=== PATIENT | male | born 1995 | race Caucasian/White ===

== ENCOUNTER 2024-06-04 17:32 | Emergency (ER) | payer SELFPAY ==
[~2024-06-04] VITALS: Ht 177.8 cm; Wt 97.5 kg
[2024-06-04 17:33] VITALS: BP 143/75; PULSE 70; RESP 16; TEMP 98.2; O2SAT 99
== END 2024-06-04 18:40 | disposition left against medical advice (07) ==
LOC: ER 17:32
DX: M54.9 Dorsalgia, unspecified (principal); Z53.21 Procedure and treatment not carried out due to patient leaving prior to being seen by health care provider